=== PATIENT | male | born 1990 | race Caucasian/White ===

== ENCOUNTER 2022-03-22 08:55 | Emergency (ER) | payer MEDICAID ==
[~2022-03-22] VITALS: Ht 175.3 cm; Wt 116.0 kg
[2022-03-22 09:02] VITALS: BP 125/80
[2022-03-22] MEDS ORDERED: PREDNISONE 20MG TABLET PO STA (09:59)
[2022-03-22] MEDS ORDERED: IPRATROPIUM BROMIDE (0.02%) 0.5MG/2.5ML NEB HHN STA (09:59)
[2022-03-22] MEDS ORDERED: ALBUTEROL (0.083%) 2.5MG/3ML NEB HHN STA (09:59)
[2022-03-22] MEDS ORDERED: ACETAMINOPHEN 325MG TABLET PO ONE (10:00)
[2022-03-22] MEDS ORDERED: P20 MT (12:29)
[2022-03-22] MEDS ORDERED: ALBU6.7H3 INH (12:29)
[2022-03-22] MEDS ORDERED: DOXY100C5 MT (12:29)
== END 2022-03-22 12:42 | disposition home or self-care (01) ==
LOC: ER 08:55
DX: J45.901 Unspecified asthma with (acute) exacerbation (principal); J18.0 Bronchopneumonia, unspecified organism; Z20.822 Contact with and (suspected) exposure to COVID-19
CPT/HCPCS: 71045; 87426; 94644; 99285; J7512; Z7610